=== PATIENT | female | born 1955 | race Two or more races ===

== ENCOUNTER 2016-09-16 23:59 | Emergency (ER) | payer OTHER ==
--- NOTE | ~2016-09-16 | CR72 ---
[facility] A Service of [facility] & [facility] [place] RADIOLOGY TEXT RESULTS PATIENT: VIPIN LATHAM LOCATION: [facility] : 55 UNIT #: [id number] AGE: [address]: Preet Griffith MD SEX: F ORDER DR: [id number] [facility] [address] [place], [place] [address] [id number] E MR#: [id number] Acc #: [id number] NAME: VIPIN LATHAM : 1955 SEX: F STUDY DATE/TIME: 09/16/2016 23:49 UNIT: [facility] ROOM: STUDY DESCRIPTION: CR Chest Single View Portable Attending Physician: Preet Griffith M.D. Ordering Physician: Preet Griffith M.D. Primary Care Physician: Primary Care Physician No MEDICAL IMAGING REPORT This report is preliminary unless electronic signature is present EXAM Portable chest, 09/16/2016 at 23:49 INDICATION Shortness of air, fever and headache for 2 days. History of hypertension. FINDINGS AP portable chest was obtained. No comparison. Heart is enlarged. Lungs are clear. Vascularity is normal. There is no pneumothorax. IMPRESSION Cardiomegaly. No active disease. Dictated by... Jonh Morrow Jr., M.D. THIS IS AN ELECTRONICALLY VERIFIED REPORT Jonh Morrow Jr., M.D. at 09/17/2016 6:07 AM SARMAD/sugey TD: 09/17/2016 04:41 JOB #: [id number] MEDICAL IMAGING REPORT Page 1 of 1 COPY
--- NOTE | ~2016-09-16 | EKG ---
PATIENT: VIPIN LATHAM UNIT #: [id number] Ventricular Rate: 94 BPM Atrial Rate: 94 BPM P-R Interval: 138 ms QRS Duration: 68 ms Q-T Interval: 346 ms QTC Calculation(Bezet): 432 ms P [place]: 42 degrees Calculated R [place]: 47 degrees Calculated T [place]: 47 degrees Diagnosis Line: Normal sinus rhythm Diagnosis Line: Nonspecific T wave abnormality Diagnosis Line: Abnormal ECG Diagnosis Line: No previous ECGs available Diagnosis Line: Confirmed by KHANG HASTINGS MD ([id number]) on 09/17/2016 Diagnosis Line: 10:11:00 PM INTERPRETING MD: VENKATA ALONZO
[2016-09-17 00:23] LABS: BASOPHIL% 0.4 % (0-2.5); HEMATOCRIT 42.1 % (35.0-45.0); HEMOGLOBIN 13.9 gm/dL (12.0-16.0); LYMPHOCYTE# 1.6 X10e3 (1.0-3.5); LYMPHOCYTE% 27.3 % (17.0-45.0); MEAN CELL VOLUME 83.3 FL (83-96); MEAN CORPUSCULAR HEMOGLOBIN 27.5 PG (28-34); MEAN CORPUSCULAR HGB CONC 32.9 g/dL (30-36); MEAN PLATELET VOLUME 7.1 FL (6.5-11.5); MONOCYTE# 0.4 X10e3 (0-1.0); MONOCYTE% 6.3 % (3.0-12.0); NEUTROPHIL# 3.8 X10e3 (1.5-7.1); PLATELET COUNT 230 X10e3 (140-420); RED BLOOD COUNT 5.05 X10e (3.90-5.30); RED CELL DISTRIBUTION WIDTH 13.3 % (11.0-15.5); WHITE BLOOD COUNT 5.8 X10e3 (4.0-10.5)
[2016-09-17 00:26] LABS: DIFF IND NO
[2016-09-17 00:29] LABS: INFLUENZA A POS (NEG); INFLUENZA B NEG (NEG)
[2016-09-17 00:50] LABS: ALBUMIN SERUM 3.9 g/dL (3.5-5.0); BILIRUBIN, DIRECT 0.1 mg/dL (0.0-0.2); BILIRUBIN,INDIRECT 0.5 mg/dL (0.0-0.9); BILIRUBIN,TOTAL 0.6 mg/dL (0.2-2.0); BUN/CREATININE RATIO 13.75; CALCIUM SERUM 8.9 mg/dL (8.4-10.2); CREATININE SERUM 0.8 mg/dL (0.6-1.4); GLOM FILT RATE Estimated 79.6 mL/min (>60); POTASSIUM 4.1 mmol/L (3.5-5.1); PROTEIN TOTAL SERUM 7.9 g/dL (6.0-8.3)
[2016-09-17 01:45] LABS: URINE SOURCE CLEAN CATCH
[2016-09-17 01:57] LABS: URINE APPEARANCE CLEAR; URINE BILIRUBIN NEG (NEG); URINE BLOOD 1+ (NEG); URINE COLOR YELLOW; URINE GLUCOSE NEG (NEG); URINE KETONE NEG (NEG); URINE LEUKOCYTE ESTERASE NEG (NEG); URINE NITRATE NEG (NEG); URINE PROTEIN NEG (NEG); URINE SPECIFIC GRAVITY 1.012 (1.003-1.035); URINE UROBILINOGEN 0.2 MG/DL (NEG)
[2016-09-17 01:58] LABS: URBCS1 AUWI 0-2 /[HPF] (0-2); URINE BACTERIA AUWI NEG (NEGATIVE); URINE SQUAMOUS EPITHELIAL CELL NONE SEEN /[HPF]; UWBCS1 AUWI 0-2 (0-5)
[2016-09-17 01:59] LABS: CULTURE INDICATED? NO
== END 2016-09-17 02:11 | disposition home or self-care (01) ==
LOC: CED 23:59
PROVIDERS: Emergency Medicine
DX: J10.1 Influenza due to other identified influenza virus with other respiratory manifestations (principal); I10 Essential (primary) hypertension; F17.200 Nicotine dependence, unspecified, uncomplicated
CPT/HCPCS: 36415; 71010; 80048; 80076; 81003; 85025; 87804; 93005; 96361; 96374; 96375; 99284; J2270; J2405